=== PATIENT | male | born 1970 | race Caucasian/White ===

== ENCOUNTER 2020-11-06 21:30 | Emergency (ER) | payer MEDICARE, OTHER ==
[2020-11-06] MEDS ORDERED: BACTROBAN OINT22 GM EXT (22:54)
[2020-11-06] MEDS ORDERED: BACTRIM DS TAB1 EACH PO (22:54)
[2020-11-06] MEDS ORDERED: CEPHALEXIN500 M1 PO (22:54)
== END 2020-11-06 23:00 | disposition home or self-care (01) ==
LOC: ER1 21:30
DX: S51.811D Laceration without foreign body of right forearm, subsequent encounter (principal); L08.9 Local infection of the skin and subcutaneous tissue, unspecified
CPT/HCPCS: 99282